=== PATIENT | male | born 1990 | race Two or more races ===

== ENCOUNTER 2024-02-29 12:16 | Outpatient (REF) | payer MEDICARE, SELFPAY ==
[2024-02-29 13:27] LABS: MANUAL DIFF FLAG NO
[2024-02-29 13:36] LABS: Basophils Percent Auto 0.3 % (0-2); Eosinophils Absolute Auto 0.1 X10*3/uL (0.0-0.4); Eosinophils Percent Auto 0.8 % (0-4); Hematocrit 47.9 % (42.0-52.0); Hemoglobin 16.7 g/dl (14.0-18.0); Imm Gran Abs Auto 0.02 X10*3/uL (0.00-0.03); Imm Gran Pct Auto 0.3 % (0.0-0.4); Lymphocytes Absolute Auto 2.9 X10*3/uL (1.2-4.9); Lymphocytes Percent Auto 36.9 % (20-40); Mean Corpuscular HGB Conc 34.9 g/dl (31.0-36.0); Mean Corpuscular Hemoglobin 30.9 pg (27.0-33.0); Mean Corpuscular Volume 88.7 fL (80.0-98.0); Mean Platelet Volume 10.4 fL (9.4-12.4); Monocytes Absolute Auto 0.6 X10*3/uL (0.1-1.2); Monocytes Percent Auto 7.1 % (2-11); Neutrophils Absolute Auto 4.3 x10*3/uL (2.0-8.3); Neutrophils Percent Auto 54.6 % (45-73); Platelet Count 267 X10*3/uL (160-400); Red Cell Distribution Width 12.4 % (11.0-16.0); White Blood Count 7.9 X10*3/uL (4.8-10.8)
[2024-02-29 13:49] LABS: Estimated Average Glucose 105 mg/dL; Hemoglobin A1C 148.7283 umol/L; Hemoglobin A1c % 5.3 % (<6.0); Total Hemoglobin (HGBA1C) 4328.2569 umol/L
--- OUTSIDE RECORDS SUMMARY | 2024-02-29 14:22 | XMS_ITS | Clinical Summary ---
Author Organization [facility] Address [address] [place] [phone] Phone Care Team Providers Care Civil Estimator Name Role Phone Cesario El Primary Care Provider [phone] Immunizations Name Administration Dates Next Due DTP 11/20/1993, 1,10/05/1989,03/06/18 90,1988 Hep B, ped/adol 06/10/2001,03/04/2001,01/16/2001 Hib (PRP-T) 05/01/1990 MMR 11/09/1994,05/01/1990 Measles 06/18/1989 OPV 11/20/1993, 1,03/06/1989,12/19/18 89 Td (adult) (MBL), 2 Lf tetan us toxoid, PF, adsorbed 03/08/2000 Tdap 05/09/2007 Family History Relation Name Status Comments Father Alive Father: Alive a nd well Mother Alive Mother: Hyperte nsion Sister Alive Sister: Asthma, Alive and well, Asthma Social History Tobacco Use Types Packs/Day Years Used Date Smoking Tobacco: Never Assessed Sex and Gender Information Value Date Recorded Sex Assigned at Not on file Legal Sex Male 4:24 PM EDT Gender Identity Not on file Sexual Orientation Not on file Plan of Treatment Health Maintenance Due Date Last Done Comments Varicella Vaccines (1 of 2 - 13+ 2-dose series) 2001 DTaP,Tdap,and Td Vaccines (7 - Td or Tdap) 05/08/2017 05/09/2007, 03/08/2000, 11/20/1993, Additional history exists Influenza Vaccines (#1) 2023 COVID-19 Vaccine ( season) 2023 HIB Vaccines Completed 05/01/1990 IPV Vaccines Completed 11/20/1993, 11/06, 03/06/1989, Additional history exists MMR Vaccines Completed 11/09/1994, 05/01/1990 Hepatitis B Vaccines Completed 06/10/2001, 03/04/2001, 01/16/2001 HPV Vaccines Aged Out No longer eligi ble based on patient's age to complete this topic Hepatitis A Vaccines Aged Out No long er eligible based on patient's age to complete this topic Men B Vaccine Aged Out No longer elig ible based on patient's age to complete this topic Meningococcal Vaccine Aged Out No charlie justice eligible based on patient's age to complete this topic Pneumococcal Vaccine Aged Out No long er eligible based on patient's age to complete this topic Care Teams Civil Estimator Relationship Specialty Start Date End Date Cesario El [address] [place] [phone] PCP - General 09/15/16
--- OUTSIDE RECORDS SUMMARY | 2024-02-29 14:22 | XMS_ITS | Clinical Summary ---
Author Organization [facility] Address [address] [place] [address] Phone Care Team Providers Care Collection Specialist Name Role Phone Oniel Slater MD Primary Care Provider [phone] Allergies Active Allergy Reactions Criticality Noted Date Comments Peanut Unknown 06/22/2021 Medications Medication Sig Dispensed Refills Start Date End Date Status betamethasone dipropionate (DIPROSONE) 0.05 % ointment Apply thin layer to affected areas BID 05/10/2017 Active cephalexin (KEFLEX) 500 mg capsule 1 Cap 4 times daily. 04/20/2015 Active hydrocortisone 2.5 % lotion 2 times daily. 04/20/2015 Active Active Problems Problem Noted Date Diagnosed Date Eczema 05/10/2017 Encounters Date Type Department Care Team Description 01/18/2024 7:17 PM EST - 01/18/2024 9:30 PM EST Emergency [facility] Emergency [address] [place] [address] Discharge Disposition: Home or Self Care from Last 3 Months Immunizations Name Administration Dates Next Due Td Tetanus diptheria (Tdvax) 7yo and older 10/12 Tdap Tetanus diptheria acell ular pertussis (Boostrix; Adacel) 7yo and older 06/03/2013 Social History Tobacco Use Types Packs/Day Years Used Date Smoking Tobacco: Never Assessed Sex and Gender Information Value Date Recorded Sex Assigned at Not on file Gender Identity Not on file Sexual Orientation Not on file Obstetrics History Last Filed Vital Signs Vital Sign Reading Time Taken Comments Blood Pressure 121/69 01/18/2024 7:37 PM EST Pulse 61 01/18/2024 7:37 PM EST Temperature - - Respiratory Rate 16 01/18/2024 7:37 PM EST Oxygen Saturation 100% 01/18/2024 7:37 PM EST Inhaled Oxygen Concentration - - Weight 81.6 kg (180 lb) 01/18/2024 7:37 PM EST Height 165.1 cm (5' 5 ) 01/18/2024 7:37 PM EST Body Mass Index 29.95 01/18/2024 7:37 PM EST Plan of Treatment Health Maintenance Due Date Last Done Comments Hepatitis A Vaccines (1 of 2 - Risk 2-dose series) 10/05/2007 Hepatitis B Vaccines (1 of 3 - 19+ 3-dose series) 10/05/2007 Depression Screening 01/04/2022 HIV Screening 01/04/2022 Hepatitis C Screening 01/04/2022 Social Influencers of Health Screening 01/04/2022 Cholesterol Screening (Lipid Panel) 05/10/2022 05/10/2017 DTaP,Tdap,and Td Vaccines (3 - Td or Tdap) 06/04/2023 06/03/2013, 10/12/2008 COVID-19 Vaccine (1 - 2023-2 5 season) 2023 Influenza Vaccine (#1) 2023 HIB Vaccines Aged Out No longer eligi ble based on patient's age to complete this topic HPV Vaccines Aged Out No longer eligi ble based on patient's age to complete this topic IPV Vaccines Aged Out No longer eligi ble based on patient's age to complete this topic MMR Vaccines Aged Out No longer eligi ble based on patient's age to complete this topic Meningococcal ACWY Vaccine Aged Out N o longer eligible based on patient's age to complete this topic Pneumococcal Vaccine: Pediatrics (0 to 5 Years) and At-Risk Patients (6 to 64 Years) Aged Out No longer eligible b ased on patient's age to complete this topic RSV Immunization Patients Under 20 months Aged Out No longer eligible b ased on patient's age to complete this topic Varicella Vaccines Aged Out No longer eligible based on patient's age to complete this topic Procedures Procedure Name Priority Date/Time Associated Diagnosis Comments CBC WITH AUTO DIFFERENTIAL STAT 01/18/2024 7:44 PM EST MAGNESIUM STAT 01/18/2024 7:44 PM EST LIPASE STAT 01/18/2024 7:44 PM EST COMPREHENSIVE METABOLIC PANEL STAT 01/18/2024 7:44 PM EST CBC AND DIFFERENTIAL STAT 01/18/2024 7:44 PM EST TROPONIN I HIGH SENSITIVITY STAT 01/18/2024 7:44 PM EST ECG 12-LEAD STAT 01/18/2024 7:22 PM EST ECG ANNOTATED 01/18/2024 LIPID PANEL Routine 05/10/2017 from Last 3 Months or Most Recently Relevant to Health Maintenance Results * Troponin I high sensitivity (01/18/2024 7:44 PM EST) [facility] High Sensitivity Troponin I 5 <=79 ng/L LAB CHEMISTRY METHOD 01/18/2024 8:24 PM EST [facility] Blood Venous blood specimen / Unknown Venipuncture / Unknown 01/18/2024 7:44 PM EST 01/18/2024 7:57 PM EST Narrative [facility] - 01/18/2024 8:24 PM EST High levels of biotin in samples may falsely decrease hsTroponin values. ??Use caution when interpreting hsTroponin results in patients taking biotin who exhibit renal impairment (eGFR <60) or in patients taking more than 20 mg/day of biotin. Marcio Clarke DO LAB BLOOD ORDERABLES [facility] [address] [place] [address], * (ABNORMAL) CBC auto differential (01/18/2024 7:44 PM EST) [facility] WBC 12.7(H) 4.8 - 10.8 K/mcL LAB HEMETOLOGY METHOD 01/18/2024 8:05 PM EST [facility] RBC 5.10 4.50 - 5.50 M/mcL LAB HEMETOLOGY METHOD 01/18/2024 8:05 PM [facility] Hemoglobin 16.0 13.5 - 17.5 g/dL LAB HEMETOLOGY METHOD 01/18/2024 8:05 PM [facility] Hematocrit 46.3 42.0 - 54.0 % LAB HEMETOLOGY METHOD 01/18/2024 8:05 PM [facility] MCV 90.1 79.0 - 98.0 FL LAB HEMETOLOGY METHOD 01/18/2024 8:05 PM [facility] MCH 31.1 27.0 - 32.0 pcg LAB HEMETOLOGY METHOD 01/18/2024 8:05 PM [facility] MCHC 34.6 32.0 - 37.0 g/dL LAB HEMETOLOGY METHOD 01/18/2024 8:05 PM [facility] RDW 12.4 11.0 - 15.0 % LAB HEMETOLOGY METHOD 01/18/2024 8:05 PM [facility] Platelets 279 130 - 400 K/mcL LAB HEMETOLOGY METHOD 01/18/2024 8:05 PM [facility] MPV 10.4 7.0 - 11.0 FL LAB HEMETOLOGY METHOD 01/18/2024 8:05 PM [facility] NRBC 0.0 <1.0 % LAB HEMETOLOGY METHOD 01/18/2024 8:05 PM [facility] NRBC Absolute 0.00 <0.10 K/mcL LAB HEMETOLOGY METHOD 01/18/2024 8:05 PM [facility] Neutrophils Relative 61.1 % LAB HEMETOLOGY METHOD 01/18/2024 8:05 PM [facility] Lymphocytes Relative 31.2 % LAB HEMETOLOGY METHOD 01/18/2024 8:05 PM EST [facility] Monocytes Relative 6.2 % LAB HEMETOLOGY METHOD 01/18/2024 8:05 PM [facility] Eosinophils Relative 0.9 % LAB HEMETOLOGY METHOD 01/18/2024 8:05 PM [facility] Basophils Relative 0.3 % LAB HEMETOLOGY METHOD 01/18/2024 8:05 PM [facility] Immature Granulocytes Relative 0.3 % LAB HEMETOLOGY METHOD 01/18/2024 8:05 PM [facility] Neutrophils Absolute 7.77(H) 1.50 - 7.00 K/mcL LAB HEMETOLOGY METHOD 01/18/2024 8:05 PM [facility] Lymphocytes Absolute 3.97 1.00 - 5.00 K/mcL LAB HEMETOLOGY METHOD 01/18/2024 8:05 PM [facility] Monocytes Absolute 0.79 0.20 - 1.00 K/mcL LAB HEMETOLOGY METHOD 01/18/2024 8:05 PM [facility] Eosinophils Absolute 0.12 0.00 - 0.50 K/mcL LAB HEMETOLOGY METHOD 01/18/2024 8:05 PM [facility] Basophils Absolute 0.04 0.00 - 0.20 K/mcL LAB HEMETOLOGY METHOD 01/18/2024 8:05 PM [facility] Immature Granulocytes Absolute 0.04(H) 0.00 - 0.03 K/mcL LAB HEMETOLOGY METHOD 01/18/2024 8:05 PM [facility] Blood Venous blood specimen / Unknown Venipuncture / Unknown 01/18/2024 7:44 PM EST 01/18/2024 7:57 PM EST Marcio Clarke DO LAB BLOOD ORDERABLES [facility] [address] [place] [address], [place] [phone] * Magnesium (01/18/2024 7:44 PM EST) [facility] Magnesium 2.4 1.9 - 2.6 mg/dL LAB CHEMISTRY METHOD 01/18/2024 8:26 PM EST [facility] Blood Venous blood specimen / Unknown Venipuncture / Unknown 01/18/2024 7:44 PM EST 01/18/2024 7:57 PM EST Brunomitesh Clarke DO LAB BLOOD ORDERABLES [facility] [address] [place] [address], [place] [phone] * Lipase (01/18/2024 7:44 PM EST) [facility] Lipase 30 13 - 75 unit/L LAB CHEMISTRY METHOD 01/18/2024 8:26 PM EST [facility] Blood Venous blood specimen / Unknown Venipuncture / Unknown 01/18/2024 7:44 PM EST 01/18/2024 7:57 PM EST Brunomitesh Yu Tricia LOVING LAB BLOOD ORDERABLES [facility] [address] [place] [address], [place] [phone] * Comprehensive metabolic panel (01/18/2024 7:44 PM EST) [facility] Sodium 141 133 - 145 mmol/L LAB CHEMISTRY METHOD 01/18/2024 8:26 PM EST [facility] Potassium 4.0 3.5 - 5.5 mmol/L LAB CHEMISTRY METHOD 01/18/2024 8:26 PM EST [facility] Chloride 107 96 - 110 mmol/L LAB CHEMISTRY METHOD 01/18/2024 8:26 PM EST [facility] CO2 26 21 - 32 mmol/L LAB CHEMISTRY METHOD 01/18/2024 8:26 PM [facility] Anion Gap 8 3 - 11 LAB CHEMISTRY METHOD 01/18/2024 8:26 PM [facility] Glucose 78 70 - 100 mg/dL LAB CHEMISTRY METHOD 01/18/2024 8:26 PM [facility] BUN 14 5 - 25 mg/dL LAB CHEMISTRY METHOD 01/18/2024 8:26 PM [facility] Creatinine 1.07 0.70 - 1.30 mg/dL LAB CHEMISTRY METHOD 01/18/2024 8:26 PM [facility] eGFR 93 >=60 mL/min/1. 73m2 LAB CHEMISTRY METHOD 01/18/2024 8:26 PM [facility] Comment:Calculation based on the??Chronic Kidney Disease Epidemiology Collaboration (CKD-EPI) equation refit??without adjustment for race. BUN/Creatinine Ratio 13.1 LAB CHEMISTRY METHOD 01/18/2024 8:26 PM [facility] Calcium 9.5 8.5 - 10.5 mg/dL LAB CHEMISTRY METHOD 01/18/2024 8:26 PM [facility] AST (SGOT) 19 10 - 42 unit/L LAB CHEMISTRY METHOD 01/18/2024 8:26 PM [facility] ALT (SGPT) 35 10 - 60 unit/L LAB CHEMISTRY METHOD 01/18/2024 8:26 PM [facility] Alkaline Phosphatase 96 42 - 121 unit/L LAB CHEMISTRY METHOD 01/18/2024 8:26 PM [facility] Total Protein 7.5 6.0 - 8.0 g/dL LAB CHEMISTRY METHOD 01/18/2024 8:26 PM [facility] Albumin 4.4 3.2 - 5.0 g/dL LAB CHEMISTRY METHOD 01/18/2024 8:26 PM [facility] Total Bilirubin 0.6 0.0 - 1.4 mg/dL LAB CHEMISTRY METHOD 01/18/2024 8:26 PM EST [facility] Blood Venous blood specimen / Unknown Venipuncture / Unknown 01/18/2024 7:44 PM EST 01/18/2024 7:57 PM EST Marcio Clarke DO LAB BLOOD ORDERABLES [facility] [address] [place] [address], [place] [phone] * ECG 12 lead (01/18/2024 7:22 PM EST) Ventricular Rate ECG 78 BPM GEM[facility] Atrial Rate 78 BPM GEMUSE P-R Interval 152 ms GEMUSE QRS Duration 84 ms GEMUSE Q-T Interval 364 ms GEMUSE QTc 414 ms GEMUSE R [place] 19 degrees GEMUSE T [place] 5 degrees GEMUSE ECG Interpretation Normal sinus rhythm Normal ECG When compared with ECG of 18-FEB-2021 10:49, Vent. rate has increased BY ??33 BPM Confirmed by ARISTEO GAYLE ([id number]) on 01/20/2024 12:17:07 AM GEMUSE 01/18/2024 7:22 PM EST 01/20/2024 12:17 AM EST Brunomitesh Branhamelvira Clarke DO ECG ORDERABLES [facility] * ECG-Annotated (01/18/2024) Provider Onbase ECG ORDERABLES * (ABNORMAL) Lipid panel (05/10/2017) LDL/HDL Ratio 5(A) 0 - 4 Triglycerides 149 0 - 150 mg/dL Cholesterol 200 0 - 200 mg/dL HDL 44 40 mg/dL LDL Cholesterol 126(A) 0 - 100 mg/dL Blood Venous blood specimen / Unknown Historical Provider LAB BLOOD ORDERAB LES from Last 3 Months or Most Recently Relevant to Health Maintenance Care Teams Collection Specialist Relationship Specialty Start Date End Date Oniel Slater MD [address] [place] [phone] PCP - General 08/03/08
--- OUTSIDE RECORDS SUMMARY | 2024-02-29 14:22 | XMS_ITS | Encounter Summary ---
Author Organization [facility] Address [address] [place] [phone] Phone Care Team Providers Care Soil Expert Name Role Phone Cesario El Primary Care Provider [phone] Encounter Details Date Type Department Care Team (Late st Contact Info) Description 09/21/2016 Conversion Encounter [facility] [address] [place] [address] Social History Tobacco Use Types Packs/Day Years Used Date Smoking Tobacco: Never Assessed Sex and Gender Information Value Date Recorded Sex Assigned at Not on file Legal Sex Male 4:24 PM EDT Gender Identity Not on file Sexual Orientation Not on file documented as of this encounter Plan of Treatment Not on file documented as of this encounter Visit Diagnoses Not on filedocumented in this encounter Care Teams Soil Expert Relationship Specialty Start Date End Date Cesario El [address] [place] [address] PCP - General 09/15/16 documented as of this encounter
[2024-02-29 16:38] LABS: Anion Gap 12 (12-20); Blood Urea Nitrogen 12 mg/dL (9-16); Calcium 9.6 mg/dL (8.4-10.2); Carbon Dioxide 26 mmol/L (22-29); Chloride 106 mmol/L (96-108); Cholesterol 199 mg/dL (<200); Estimated Glomerular Filt Rate > 60; Glucose Random 79 mg/dL (60-115); HDL Cholesterol 41 mg/dL (>40); LDL Cholesterol Calculated 135 mg/dL (<100); Potassium 3.7 mmol/L (3.3-5.1); Sodium 140 mmol/L (135-145); Triglycerides 117 mg/dL (<150)
[2024-02-29 16:52] LABS: TSH reflex Free T4 1.91 uIU/mL (0.32-4.0)
[2024-03-01 08:11] LABS: HBS Num1 3.08 mIU/mL (0-7.99); HBc Num1 0.15 S/CO (0.00-0.79); HIV AB/AG Nonreactive (Nonreactive); HIV Num 1 0.06 S/CO (0.00-0.99); Hepatitis B Core Antibody Nonreactive (Nonreactive); Hepatitis B Surface Antigen Negative (Negative); ~HepC Num1 0.08 S/CO (0.00-0.79); ~Hepatitis B Surface Antibody NONREACTIVE (Nonreactive); ~Hepatitis C Antibody Nonreactive (Nonreactive)
== END 2024-02-29 12:17 | disposition home or self-care (01) ==
LOC: HO.HHCL 12:16
PROVIDERS: Visit Provider Nurse Practitioner Family
DX: Z01.84 Encounter for antibody response examination (principal); Z13.1 Encounter for screening for diabetes mellitus; Z13.220 Encounter for screening for lipoid disorders; Z13.0 Encounter for screening for diseases of the blood and blood-forming organs and certain disorders involving the immune mechanism; Z13.29 Encounter for screening for other suspected endocrine disorder
CPT/HCPCS: 36415; 80048; 80061; 83036; 84443; 85025; 86704; 86706; 86803; 87340; 87389

== ENCOUNTER 2024-05-05 10:41 | Outpatient (REF) | payer MEDICAID, SELFPAY ==
--- OUTSIDE RECORDS SUMMARY | 2024-05-05 12:02 | XMS_ITS | Clinical Summary ---
Author Organization [facility] Address [address] [place], [place] [phone] Phone Care Team Providers Care Developing Machine Operator Name Role Phone El Cesario Gray Primary Care Provider [phone] Immunizations Immunization Administration Dates Next Due DTP 11/20/1993, 1,10/05/1989,1989,1988 Hep B, ped/adol 06/10/2001,03/04/2001,01/16/2001 Hib (PRP-T) 05/01/1990 MMR 11/09/1994,05/01/1990 Measles 06/18/1989 OPV 11/20/1993, 1,03/06/1989,1988 Td (adult) (MBL), 2 Lf tetan us [...] age to complete this topic Care Teams Developing Machine Operator Relationship Specialty Start Date End Date Cesario El [address] [place] [phone] PCP - General 09/15/16
--- OUTSIDE RECORDS SUMMARY | 2024-05-05 12:02 | XMS_ITS | Clinical Summary ---
Author Organization [facility] Address [address] [place] [address] Phone Care Team Providers Care Leak Operator Paraffin Plant Name Role Phone Oniel Slater MD Primary Care Provider [phone] Allergies Active Allergy Reactions Criticality Noted Date Comments Peanut Unknown 06/22/2021 Medications betamethasone dipropionate (DIPROSONE) 0.05 % ointment Apply thin layer to affected areas BID 8 Active cephalexin (KEFLEX) 500 mg capsule 1 Cap 4 times daily. 6 Active hydrocortisone 2.5 % lotion 2 times daily. 6 Active Active Problems Problem Noted Date Diagnosed Date Eczema 05/10/2017 Immunizations Name Administration Dates Next Due Td Tetanus diptheria (Tdvax) 7yo and older 10/12 Tdap Tetanus diptheria acell ular pertussis (Boostrix; Adacel) 7yo and older 06/03/2013 Social History Tobacco Use Types Packs/Day Years Used Date Smoking Tobacco: Never Assessed Sex and Gender Information Value Date Recorded Sex Assigned at Not on file Legal Sex Male 1:55 PM EST Gender Identity Not on file Sexual Orientation [...] Maintenance Due Date Last Done Comments Hepatitis B Vaccines (1 of 3 - 19+ 3-dose series) 10/05/2007 Depression Screening 01/04/2022 HIV Screening 01/04/2022 Hepatitis C Screening 01/04/2022 Social Influencers of Health Screening 01/04/2022 Cholesterol Screening (Lipid Panel) 05/10/2022 05/10/2017 DTaP,Tdap,and Td Vaccines (3 - Td or Tdap) 06/04/2023 06/03/2013, 10/12/2008 COVID-19 Vaccine (2023-2 5 season) 2023 Influenza Vaccine (#1) 2023 [...] patient's age to complete this topic Meningococcal B Vacine Aged Out No lo nger eligible based on patient's age to complete [...] Procedure Name Priority Date/Time Associated Diagnosis Comments LIPID PANEL Routine 05/10/2017 from Last 3 Months or Most Recently Relevant to Health Maintenance Results * (ABNORMAL) Lipid panel (05/10/2017) LDL/HDL Ratio 5(A) 0 - 4 Triglycerides 149 0 - 150 mg/dL Cholesterol 200 0 - 200 mg/dL HDL 44 >=40 mg/dL LDL Cholesterol 126(A) 0 - 100 mg/dL Blood Venous blood specimen / Unknown us Historical Provider LAB BLOOD ORDERABLES Giovana bruner Result from Last 3 Months or Most Recently Relevant to Health Maintenance Insurance MEDICAID - [place] Care Teams Leak Operator Paraffin Plant Relationship Specialty Start Date End Date Oniel Slater MD [address] [place] [phone] PCP - General 08/03/08
--- OUTSIDE RECORDS SUMMARY | 2024-05-05 12:02 | XMS_ITS | Encounter Summary ---
Author Organization [facility] Address [address] [place] [phone] Phone Care Team Providers Care Forest Fire Officer Name Role Phone Cesario El Primary Care Provider [phone] Encounter Details Date Type Department Care Team (Late st Contact Info) Description 09/21/2016 Conversion Encounter [facility] [place] [address] [place] [address] Social History Tobacco Use Types Packs/Day Years [...] on filedocumented in this encounter Care Teams Forest Fire Officer Relationship Specialty Start Date End Date Cesario El [address] [place] [address] PCP - General 09/15/16 documented as of this encounter
[2024-05-05 13:21] LABS: Anion Gap 12 (12-20); Blood Urea Nitrogen 14 mg/dL (9-16); Calcium 9.8 mg/dL (8.4-10.2); Carbon Dioxide 25 mmol/L (22-29); Chloride 106 mmol/L (96-108); Estimated Glomerular Filt Rate > 60; Glucose Random 87 mg/dL (60-115); Potassium 4.2 mmol/L (3.3-5.1); Sodium 139 mmol/L (135-145)
[2024-05-05 13:42] LABS: Creatinine Urine 162.96 mg/dL; Microalbumin Urine < 5.0 mg/L
== END 2024-05-05 10:42 | disposition home or self-care (01) ==
LOC: HO.HHCL 10:41
PROVIDERS: Visit Provider Nurse Practitioner Family
DX: I10 Essential (primary) hypertension (principal)
CPT/HCPCS: 36415; 80048; 82043; 82570